=== PATIENT | male | born 1960 | race African-American/Black ===

== ENCOUNTER 2022-09-16 15:33 | Emergency (ER) | payer OTHER, MEDICARE, MEDICAID ==
[~2022-09-16] VITALS: Ht 170.2 cm; Wt 90.0 kg
[~2022-09-16 15:33] MED LIST: CYCL-1 PO; NAPR500T6 PO
[2022-09-16 15:50] VITALS: BP 122/90
[2022-09-16] MEDS ORDERED: CYCL-1 PO (16:37)
[2022-09-16] MEDS ORDERED: IBUP-1986 PO (16:37)
[2022-09-16] MEDS ORDERED: cyclobenzaprine 10mg tablet PO ONE (16:40)
[2022-09-16] MEDS ORDERED: ketorolac trometh. 30mg/ml inj. IM ONE (16:40)
== END 2022-09-16 17:32 | disposition home or self-care (01) ==
LOC: ER 15:34
DX: M25.532 Pain in left wrist (principal); G89.29 Other chronic pain; F15.90 Other stimulant use, unspecified, uncomplicated; Z98.890 Other specified postprocedural states; Z72.89 Other problems related to lifestyle; Z79.899 Other long term (current) drug therapy; V87.7XXA Person injured in collision between other specified motor vehicles (traffic), initial encounter; Y93.89 Activity, other specified; Y92.89 Other specified places as the place of occurrence of the external cause; Y99.8 Other external cause status
CPT/HCPCS: 73110; 96372; 99283; J1885

== ENCOUNTER 2024-04-08 17:03 | Emergency (ER) | payer MEDICARE, MEDICAID ==
[~2024-04-08] VITALS: Ht 170.2 cm; Wt 94.5 kg
[~2024-04-08 17:03] MED LIST changes: +IBUP-1986 PO
[2024-04-08 18:51] LABS: BASOPHILS % (AUTO) 0.6 % (0-1); EOSINOPHILS % (AUTO) 0.1 % (0-6); HEMATOCRIT 42.2 % (42.0-52.0); HEMOGLOBIN 14.1 g/dl (14.0-17.9); LYMPHOCYTES # (AUTO) 0.8 X10'3 (1.1-4.8); LYMPHOCYTES % (AUTO) 10.4 % (21-51); MEAN CORPUSCULAR HEMOGLOBIN 32.2 PG (27.0-31.0); MEAN CORPUSCULAR HGB CONC 33.3 g/dL (33.0-36.5); MEAN CORPUSCULAR VOLUME 96.6 FL (78-98); MEAN PLATELET VOLUME 8.3 FL (7.4-10.4); MONOCYTES # (AUTO) 0.3 X10'3 (0-0.9); MONOCYTES % (AUTO) 3.4 % (2-12); NEUTROPHILS # (AUTO) 6.4 X10'3 (1.8-7.7); NEUTROPHILS % (AUTO) 85.5 % (42-75); PLATELET COUNT 255 X10'3 (140-440); RED BLOOD COUNT 4.37 X10'6 (4.70-6.10); RED CELL DISTRIBUTION WIDTH 13.8 % (11.5-14.5); WHITE BLOOD COUNT 7.5 X10'3 (4.5-11.0)
[2024-04-08 19:11] LABS: ALBUMIN 3.8 G/DL (3.4-5.0); ANION GAP 11 (8-16); BLOOD UREA NITROGEN 17 MG/DL (7-18); BUN/CREATININE RATIO 15.5 (10.0-20.0); CALCIUM 9.6 MG/DL (8.5-10.1); CHLORIDE 105 MMOL/L (99-107); GLUCOSE 151 MG/DL (70-104); POTASSIUM 4.2 MMOL/L (3.5-5.1); PRO BRAIN NATRIURETIC PEPTIDE 5582 PG/ML (0-125); SODIUM 140 MMOL/L (135-145); TOTAL CARBON DIOXIDE 24.2 MMOL/L (24-32); eGFR 81 ML/MIN
[2024-04-08 19:55] LABS: D-DIMER 0.64 MG/L FEU (0-0.50)
[2024-04-08] MEDS ORDERED: iohexol 350MG/ML 100ml bottle IV ONE (20:05)
[2024-04-08 20:45] VITALS: PULSE 110; RESP 20; O2SAT 100
[2024-04-08] MEDS: ipratropium/albuterol 3ml nebule NEB ONE (20:47)
[2024-04-08 20:52] VITALS: PULSE 110; RESP 18; O2SAT 100
[2024-04-08] MEDS: furosemide 10 MG/1 ML 10ml inj IV ONE (22:26)
[2024-04-08] MEDS: morphine 4 MG/ML inj SYRINge IV ONE (22:33)
[2024-04-08 23:10] VITALS: BP 150/99; PULSE 95; RESP 16; TEMP 98.3; O2SAT 95
[2024-04-12] MEDS ORDERED: NO HOME MEDS (07:00)
[2024-04-14] MEDS ORDERED: SPIR25TA PO (12:28)
[2024-04-14] MEDS ORDERED: FURO-150 PO (12:28)
[2024-04-14] MEDS ORDERED: COR3.125T PO (12:28)
[2024-04-14] MEDS ORDERED: EMPA10TA PO (12:28)
[2024-04-14] MEDS ORDERED: SACU1TAB PO (12:28)
== END 2024-04-08 23:14 | disposition home or self-care (01) ==
LOC: ER 17:03
DX: I50.9 Heart failure, unspecified (principal); Z20.822 Contact with and (suspected) exposure to COVID-19; R06.2 Wheezing; G89.29 Other chronic pain; F15.90 Other stimulant use, unspecified, uncomplicated; Z72.89 Other problems related to lifestyle; Z79.899 Other long term (current) drug therapy; Z87.891 Personal history of nicotine dependence
CPT/HCPCS: 36415; 71046; 71275; 80048; 83605; 83880; 85025; 85379; 87040; 87811; 93005; 94640; 96374; 96375; 99285; J1940; J2270; Q9967; Z7610; 94760

== ENCOUNTER 2024-04-15 18:52 | Inpatient (IN) | payer MEDICARE, MEDICAID ==
[~2024-04-15] VITALS: Ht 157.5 cm; Wt 88.8 kg
[~2024-04-15 18:52] MED LIST changes: +COR3.125T PO; -CYCL-1 PO; +EMPA10TA PO; +FURO-150 PO; -IBUP-1986 PO; -NAPR500T6 PO; +SACU1TAB PO; +SPIR25TA PO
[2024-04-15] MEDS: normal saline 1000ml 1,000 ML IV ONE ×2 (19:29→19:36)
[2024-04-15] MEDS ORDERED: calcium gluconate inj. 2 GM in normal saline 100ml IV soln 100 ML IV ONE (19:35)
[2024-04-15] MEDS ORDERED: calcium gluconate inj. 1 GM in normal saline 50ml IV soln 50 ML IV ONE (19:45)
[2024-04-15 20:10] LABS: BASOPHILS # (AUTO) 0.1 X10'3 (0-0.2); BASOPHILS % (AUTO) 1.2 % (0-1); EOSINOPHILS # (AUTO) 0.2 X10'3 (0-0.9); EOSINOPHILS % (AUTO) 2.1 % (0-6); HEMATOCRIT 48.7 % (42.0-52.0); LYMPHOCYTES # (AUTO) 2.8 X10'3 (1.1-4.8); LYMPHOCYTES % (AUTO) 34.2 % (21-51); MEAN CORPUSCULAR HGB CONC 32.9 g/dL (33.0-36.5); MEAN CORPUSCULAR VOLUME 97.3 FL (78-98); MEAN PLATELET VOLUME 8.3 FL (7.4-10.4); MONOCYTES # (AUTO) 0.7 X10'3 (0-0.9); MONOCYTES % (AUTO) 8.1 % (2-12); NEUTROPHILS # (AUTO) 4.4 X10'3 (1.8-7.7); NEUTROPHILS % (AUTO) 54.4 % (42-75); PLATELET COUNT 292 X10'3 (140-440); RED BLOOD COUNT 5.01 X10'6 (4.70-6.10); RED CELL DISTRIBUTION WIDTH 13.8 % (11.5-14.5); WHITE BLOOD COUNT 8.2 X10'3 (4.5-11.0)
[2024-04-15] MEDS: CALCIUM GLUC 1gm/50ml NACL,iso 100 ML IV ONE (20:19)
[2024-04-15 20:35] LABS: ALBUMIN 3.3 G/DL (3.4-5.0); ANION GAP 6 (8-16); BLOOD UREA NITROGEN 30 MG/DL (7-18); BUN/CREATININE RATIO 17.9 (10.0-20.0); CALCIUM 8.9 MG/DL (8.5-10.1); CHLORIDE 102 MMOL/L (99-107); CREATININE 1.68 MG/DL (0.60-1.10); GLUCOSE 168 MG/DL (70-104); PRO BRAIN NATRIURETIC PEPTIDE 1784 PG/ML (0-125); SODIUM 134 MMOL/L (135-145); TOTAL CARBON DIOXIDE 26.4 MMOL/L (24-32); eCRCL 34 ML/MIN; eGFR 50 ML/MIN
[2024-04-15] MEDS ORDERED: magnesium hydroxide 30ml (MOM) UD suspension PO PRN (22:40)
[2024-04-15] MEDS ORDERED: potassium Cl 20 mEq SR tablet PO PRN ×2 (22:40)
[2024-04-15] MEDS ORDERED: ondansetron/PF 4mg/2ml inj IV PRN (22:40)
[2024-04-15] MEDS ORDERED: acetaminophen 325mg tablet PO PRN (22:40)
[2024-04-15] MEDS ORDERED: mag hydrox/Alum hydrox/simeth 30ml oral suspension PO PRN (22:40)
[2024-04-15] MEDS ORDERED: magnesium sulf-water 2g/50mL 50 ML IV PRN (22:40)
[2024-04-15] MEDS ORDERED: potassium Cl 40MEQ/1/2NS 520ml 520 ML IV PRN (22:40)
[2024-04-15] MEDS ORDERED: magnesium sulf-water 4G/100mL 100 ML IV PRN (22:40)
[2024-04-15] MEDS ORDERED: magnesium Cl slow-release 64mg tablet PO PRN (22:40)
[2024-04-15 23:25] LABS: URINE AMPHETAMINE SCREEN NEGATIVE (Neg); URINE BARBITUATE SCREEN NEGATIVE (Neg); URINE BENZODIAZEPINES SCREEN NEGATIVE (Neg); URINE CANNABINOID SCREEN POSITIVE (Neg); URINE COCAINE SCREEN NEGATIVE (Neg); URINE METHADONE SCREEN NEGATIVE (Neg); URINE OPIATE SCREEN NEGATIVE (Neg); URINE PHENCYCLIDINE SCREEN NEGATIVE (Neg)
[2024-04-15] MEDS: normal saline 1000ml 1,000 ML IV SCH (23:35)
[2024-04-16 01:53] LABS: POTASSIUM 5.1 MMOL/L (3.5-5.1)
[2024-04-16 07:52] LABS: BASOPHILS # (AUTO) 0.1 X10'3 (0-0.2); EOSINOPHILS # (AUTO) 0.1 X10'3 (0-0.9); EOSINOPHILS % (AUTO) 1.9 % (0-6); HEMATOCRIT 45.2 % (42.0-52.0); HEMOGLOBIN 15.4 g/dl (14.0-17.9); LYMPHOCYTES # (AUTO) 2.6 X10'3 (1.1-4.8); LYMPHOCYTES % (AUTO) 39.8 % (21-51); MEAN CORPUSCULAR HEMOGLOBIN 32.9 PG (27.0-31.0); MEAN CORPUSCULAR VOLUME 96.8 FL (78-98); MEAN PLATELET VOLUME 8.4 FL (7.4-10.4); MONOCYTES # (AUTO) 0.7 X10'3 (0-0.9); MONOCYTES % (AUTO) 10.2 % (2-12); NEUTROPHILS # (AUTO) 3.1 X10'3 (1.8-7.7); NEUTROPHILS % (AUTO) 47.1 % (42-75); PLATELET COUNT 254 X10'3 (140-440); RED BLOOD COUNT 4.67 X10'6 (4.70-6.10); RED CELL DISTRIBUTION WIDTH 13.8 % (11.5-14.5); WHITE BLOOD COUNT 6.5 X10'3 (4.5-11.0)
[2024-04-16] MEDS: K and/or MAG REPLACEMENT MC SCH (08:00)
[2024-04-16 08:18] LABS: ALBUMIN 3.1 G/DL (3.4-5.0); ANION GAP 10 (8-16); BLOOD UREA NITROGEN 22 MG/DL (7-18); CALCIUM 8.8 MG/DL (8.5-10.1); CHLORIDE 105 MMOL/L (99-107); GLUCOSE 99 MG/DL (70-104); MAGNESIUM 2.1 MG/DL (1.5-2.4); POTASSIUM 4.4 MMOL/L (3.5-5.1); SODIUM 138 MMOL/L (135-145); TOTAL CARBON DIOXIDE 22.9 MMOL/L (24-32); eCRCL 52 ML/MIN; eGFR 81 ML/MIN
[2024-04-16] MEDS: heparin, porcine 5000 units/ml vial SQ SCH (13:11)
[2024-04-16] MEDS: EMPAGLIFLOZIN 10 MG TABLET PO SCH (13:15)
[2024-04-16] MEDS: furosemide 20 MG/2 ML vial IV SCH (16:05)
[2024-04-16 18:00] VITALS: BP 112/76; PULSE 87; RESP 18; TEMP 98.2; O2SAT 94
[2024-04-16] MEDS: acetaminophen 325mg tablet PO PRN (19:26)
[2024-04-16 20:00] VITALS: BP_SYST 100; BP_SYST 138; BP_SYST 93; BP_DIAS 58; BP_DIAS 71; BP_DIAS 85; RESP 18; O2SAT 94
[2024-04-17 02:00] VITALS: BP 118/66; PULSE 79; RESP 15; TEMP 97.9; O2SAT 95
[2024-04-17] MEDS ORDERED: lisinopril 2.5mg tablet PO SCH (08:00)
[2024-04-17 08:39] LABS: EOSINOPHILS # (AUTO) 0.1 X10'3 (0-0.9); EOSINOPHILS % (AUTO) 3.1 % (0-6); HEMATOCRIT 46.5 % (42.0-52.0); HEMOGLOBIN 15.6 g/dl (14.0-17.9); LYMPHOCYTES # (AUTO) 1.7 X10'3 (1.1-4.8); LYMPHOCYTES % (AUTO) 37.1 % (21-51); MEAN CORPUSCULAR HEMOGLOBIN 32.4 PG (27.0-31.0); MEAN CORPUSCULAR HGB CONC 33.5 g/dL (33.0-36.5); MEAN CORPUSCULAR VOLUME 96.7 FL (78-98); MEAN PLATELET VOLUME 8.7 FL (7.4-10.4); MONOCYTES # (AUTO) 0.5 X10'3 (0-0.9); MONOCYTES % (AUTO) 11.7 % (2-12); NEUTROPHILS # (AUTO) 2.2 X10'3 (1.8-7.7); NEUTROPHILS % (AUTO) 47.1 % (42-75); PLATELET COUNT 226 X10'3 (140-440); RED BLOOD COUNT 4.81 X10'6 (4.70-6.10); RED CELL DISTRIBUTION WIDTH 13.6 % (11.5-14.5); WHITE BLOOD COUNT 4.7 X10'3 (4.5-11.0)
[2024-04-17 08:49] LABS: ALBUMIN 3.1 G/DL (3.4-5.0); ANION GAP 9 (8-16); BLOOD UREA NITROGEN 20 MG/DL (7-18); BUN/CREATININE RATIO 21.3 (10.0-20.0); CALCIUM 9.1 MG/DL (8.5-10.1); CHLORIDE 102 MMOL/L (99-107); CREATININE 0.94 MG/DL (0.60-1.10); GLUCOSE 109 MG/DL (70-104); POTASSIUM 4.3 MMOL/L (3.5-5.1); SODIUM 136 MMOL/L (135-145); TOTAL CARBON DIOXIDE 25.3 MMOL/L (24-32); eCRCL 61 ML/MIN; eGFR > 90 ML/MIN
[2024-04-17] MEDS ORDERED: LISI2.5T14 PO (11:56)
[2024-04-17] MEDS ORDERED: FURO-150 PO (11:56)
== END 2024-04-17 13:50 | disposition home health service (06) | DRG 312 ==
LOC: ER 18:52 → ED HOLD 22:42 → UNDOADMIN 22:42 → ED HOLD 23:01 → PCU 3S 04-16 10:16
PROVIDERS: ADMIT Surgery; ATTEND Internal Medicine
DX: I95.2 Hypotension due to drugs (principal); N17.9 Acute kidney failure, unspecified; I42.0 Dilated cardiomyopathy; I50.32 Chronic diastolic (congestive) heart failure; E87.5 Hyperkalemia; I11.0 Hypertensive heart disease with heart failure; G89.29 Other chronic pain; M54.9 Dorsalgia, unspecified; F15.90 Other stimulant use, unspecified, uncomplicated; T43.655A Adverse effect of methamphetamines, initial encounter; Y92.89 Other specified places as the place of occurrence of the external cause
CPT/HCPCS: 36415; 71045; 80048; 80305; 82948; 83605; 83735; 83880; 84132; 84145; 84484; 85025; 87040; 93005; 96365; 99285; A4620; A6258; G0378; J0610; J1644; J1940; J7030

== ENCOUNTER 2024-07-22 20:30 | Inpatient (IN) | payer MEDICARE, MEDICAID ==
[~2024-07-22] VITALS: Ht 162.6 cm; Wt 90.9 kg
[~2024-07-22 20:30] MED LIST changes: +CARV3.1232 PO; -COR3.125T PO; +LISI2.5T14 PO; -SACU1TAB PO
[2024-07-22 21:06] LABS: BASOPHILS % (AUTO) 0.6 % (0-1); EOSINOPHILS # (AUTO) 0.2 X10'3 (0-0.9); EOSINOPHILS % (AUTO) 2.5 % (0-6); HEMATOCRIT 41.8 % (42.0-52.0); HEMOGLOBIN 14.1 g/dl (14.0-17.9); LYMPHOCYTES # (AUTO) 2.7 X10'3 (1.1-4.8); LYMPHOCYTES % (AUTO) 43.4 % (21-51); MEAN CORPUSCULAR HGB CONC 33.7 g/dL (33.0-36.5); MEAN PLATELET VOLUME 7.9 FL (7.4-10.4); MONOCYTES # (AUTO) 0.6 X10'3 (0-0.9); MONOCYTES % (AUTO) 9.5 % (2-12); NEUTROPHILS # (AUTO) 2.8 X10'3 (1.8-7.7); PLATELET COUNT 229 X10'3 (140-440); RED BLOOD COUNT 4.27 X10'6 (4.70-6.10); RED CELL DISTRIBUTION WIDTH 13.8 % (11.5-14.5); WHITE BLOOD COUNT 6.3 X10'3 (4.5-11.0)
[2024-07-22 21:29] LABS: ALANINE AMINOTRANSFERASE 47 U/L (12-78); ALBUMIN 3.5 G/DL (3.4-5.0); ALBUMIN/GLOBULIN RATIO 0.8 (1.1-1.5); ALKALINE PHOSPHATASE 57 IU/L (46-116); ANION GAP 11 (8-16); ASPARTATE AMINO TRANSFERASE 42 U/L (10-37); BILIRUBIN,TOTAL 0.6 MG/DL (0.1-1.0); BLOOD UREA NITROGEN 17 MG/DL (7-18); BUN/CREATININE RATIO 15.7 (10.0-20.0); CALCIUM 9.1 MG/DL (8.5-10.1); CHLORIDE 105 MMOL/L (99-107); CREATININE 1.08 MG/DL (0.60-1.10); GLUCOSE 110 MG/DL (70-104); POTASSIUM 3.8 MMOL/L (3.5-5.1); SODIUM 139 MMOL/L (135-145); TOTAL CARBON DIOXIDE 23.2 MMOL/L (24-32); eCRCL 56 ML/MIN; eGFR 83 ML/MIN
[2024-07-22 21:31] LABS: PRO BRAIN NATRIURETIC PEPTIDE 8473 PG/ML (0-125)
[2024-07-22] MEDS: ipratropium/albuterol 3ml nebule NEB ONE (21:31)
[2024-07-22 21:34] VITALS: PULSE 90; RESP 18; O2SAT 98
[2024-07-22 21:41] VITALS: PULSE 90; RESP 18; O2SAT 98
[2024-07-23] VITALS (8 sets, daily range): BP systolic 100–121; BP diastolic 65–76; PULSE 80–124; RESP 16–23; TEMP 97.2–98.1; O2SAT 91–100
[2024-07-23] MEDS ORDERED: EMPA10TA PO (01:20)
[2024-07-23] MEDS ORDERED: FURO20TA4 PO (01:20)
[2024-07-23] MEDS ORDERED: CARV3.122 PO (01:20)
[2024-07-23] MEDS ORDERED: LISI5TAB22 PO (01:20)
[2024-07-23] MEDS ORDERED: SPIR25TA5 PO (01:20)
[2024-07-23] MEDS: furosemide 10 MG/1 ML 10ml inj IV ONE (01:33)
[2024-07-23] MEDS ORDERED: magnesium Cl slow-release 64mg tablet PO PRN (01:45)
[2024-07-23] MEDS ORDERED: potassium Cl 40MEQ/1/2NS 520ml 520 ML IV PRN (01:45)
[2024-07-23] MEDS ORDERED: magnesium sulf-water 2g/50mL 50 ML IV PRN (01:45)
[2024-07-23] MEDS ORDERED: acetaminophen 325mg tablet PO PRN ×2 (01:45→22:20)
[2024-07-23] MEDS ORDERED: magnesium sulf-water 4G/100mL 100 ML IV PRN (01:45)
[2024-07-23] MEDS ORDERED: ondansetron/PF 4mg/2ml inj IV PRN (01:45)
[2024-07-23] MEDS ORDERED: potassium Cl 20 mEq SR tablet PO PRN ×2 (01:45)
[2024-07-23] MEDS ORDERED: magnesium hydroxide 30ml (MOM) UD suspension PO PRN (01:45)
[2024-07-23] MEDS ORDERED: mag hydrox/Alum hydrox/simeth 30ml oral suspension PO PRN (01:45)
[2024-07-23] MEDS: PERFLUTREN PROTEIN-A MICROSPHR (Optison) 0.22 MG/ML 3ML VIAL IV ONE (02:44)
[2024-07-23 03:11] LABS: MAGNESIUM 1.9 MG/DL (1.5-2.4)
[2024-07-23 03:14] LABS: POTASSIUM 3.6 MMOL/L (3.5-5.1)
[2024-07-23] MEDS: K and/or MAG REPLACEMENT MC SCH (08:00)
[2024-07-23] MEDS: furosemide 10 MG/1 ML 10ml inj IV SCH (08:18)
[2024-07-23] MEDS: EMPAGLIFLOZIN 10 MG TABLET PO SCH (08:19)
[2024-07-23] MEDS: docusate sod 100mg capsule PO SCH (08:19)
[2024-07-23] MEDS: lisinopril 5mg tablet PO SCH (08:19)
[2024-07-23] MEDS: carVEDilol 3.125mg tablet PO SCH (08:19)
[2024-07-23] MEDS: spironolactone 25 MG tablet PO SCH (08:33)
[2024-07-23] MEDS: azithromycin/NS 500mg/250ml 250 ML IV SCH (13:13)
[2024-07-23] MEDS: guaiFENesin ER 600mg tablet PO SCH (13:25)
[2024-07-23] MEDS ORDERED: furosemide 40mg/4ml inj IV SCH (13:26)
[2024-07-23] MEDS: ipratropium/albuterol 3ml nebule ONE (14:51)
[2024-07-23] MEDS ORDERED: morphine 2 MG/ML inj. syringe IV PRN (15:00)
[2024-07-23] MEDS: ipratropium/albuterol 3ml nebule NEB PRN (15:10)
[2024-07-23] MEDS: furosemide 40mg/4ml inj IV ONE (15:12)
[2024-07-23] MEDS: LORazepam 2 mg/ml vial IV PRN (15:45)
[2024-07-23 17:20] LABS: ABG BASE EXCESS 3.3 mmol/L (-2.0-3.0); ABG HCO3 28.1 mmol/L (21.0-28.0); ABG OXYGEN SATURATION 95.7 % (94.0-98.0); ABG PCO2 (T) 42.7 mmHg (35.0-48.0); ABG PH (T) 7.435 (7.350-7.450); ABG PO2 (T) 78.5 mmHg (83.0-108.0); ALLEN'S TEST POSITIVE; FCOHb 0.9 % (0.5-1.5); FHHb 4.2 % (0.0-5.0); FMetHb 0.3 % (0.0-1.5); FO2Hb 94.6 % (94.0-98.0); MODE NASAL CANNULA; PATIENT TEMPERATURE 36.8; TOTAL HEMOGLOBIN 15.3 G/dl (13.5-17.5)
[2024-07-23] MEDS: furosemide 40mg tablet PO SCH (22:28)
[2024-07-23] MEDS: HYDROcodone/acetaminophen 5mg/325mg tablet PO PRN (22:29)
[2024-07-23] MEDS: enoxaparin 40mg/0.4ml syringe SQ SCH (22:31)
[2024-07-24] VITALS (9 sets, daily range): BP systolic 90–108; BP diastolic 56–72; PULSE 52–107; RESP 13–20; TEMP 97–97.9; O2SAT 94–100
[2024-07-24 01:35] LABS: URINE AMPHETAMINE SCREEN POSITIVE (Neg); URINE BARBITUATE SCREEN NEGATIVE (Neg); URINE BENZODIAZEPINES SCREEN NEGATIVE (Neg); URINE CANNABINOID SCREEN POSITIVE (Neg); URINE COCAINE SCREEN NEGATIVE (Neg); URINE METHADONE SCREEN NEGATIVE (Neg); URINE OPIATE SCREEN NEGATIVE (Neg); URINE PHENCYCLIDINE SCREEN NEGATIVE (Neg)
[2024-07-24] MEDS ORDERED: furosemide 40mg tablet PO SCH (08:00)
[2024-07-24 08:17] LABS: BASOPHILS % (AUTO) 0.7 % (0-1); EOSINOPHILS # (AUTO) 0.1 X10'3 (0-0.9); EOSINOPHILS % (AUTO) 2.2 % (0-6); HEMATOCRIT 46.5 % (42.0-52.0); HEMOGLOBIN 15.6 g/dl (14.0-17.9); LYMPHOCYTES # (AUTO) 1.9 X10'3 (1.1-4.8); LYMPHOCYTES % (AUTO) 28.9 % (21-51); MEAN CORPUSCULAR HGB CONC 33.6 g/dL (33.0-36.5); MEAN PLATELET VOLUME 8.7 FL (7.4-10.4); MONOCYTES # (AUTO) 0.6 X10'3 (0-0.9); MONOCYTES % (AUTO) 10.1 % (2-12); NEUTROPHILS # (AUTO) 3.7 X10'3 (1.8-7.7); NEUTROPHILS % (AUTO) 58.1 % (42-75); PLATELET COUNT 279 X10'3 (140-440); RED BLOOD COUNT 4.75 X10'6 (4.70-6.10); RED CELL DISTRIBUTION WIDTH 13.6 % (11.5-14.5); WHITE BLOOD COUNT 6.4 X10'3 (4.5-11.0)
[2024-07-24 08:36] LABS: INR 1.1 INR
[2024-07-24 08:54] LABS: ALANINE AMINOTRANSFERASE 41 U/L (12-78); ALBUMIN 3.6 G/DL (3.4-5.0); ALBUMIN/GLOBULIN RATIO 0.7 (1.1-1.5); ALKALINE PHOSPHATASE 67 IU/L (46-116); ANION GAP 11 (8-16); ASPARTATE AMINO TRANSFERASE 44 U/L (10-37); BILIRUBIN,TOTAL 0.9 MG/DL (0.1-1.0); BLOOD UREA NITROGEN 24 MG/DL (7-18); BUN/CREATININE RATIO 17.9 (10.0-20.0); CALCIUM 9.3 MG/DL (8.5-10.1); CHLORIDE 99 MMOL/L (99-107); CREATININE 1.34 MG/DL (0.60-1.10); GLUCOSE 128 MG/DL (70-104); POTASSIUM 3.6 MMOL/L (3.5-5.1); SODIUM 137 MMOL/L (135-145); TOTAL CARBON DIOXIDE 26.8 MMOL/L (24-32); TOTAL PROTEIN 8.6 G/DL (6.4-8.2); eCRCL 45 ML/MIN; eGFR 65 ML/MIN
[2024-07-24] MEDS: furosemide 40mg/4ml inj IV SCH (09:04)
[2024-07-24 10:19] LABS: BILIRUBIN,URINE NEGATIVE (Neg); CLARITY,URINE CLEAR (Clear); COLOR,URINE YELLOW (Yellow); GLUCOSE, URINE >=1000 mg/dl (Neg); KETONES,URINE NEGATIVE (Neg); LEUKOCYTE ESTERASE ,URINE NEGATIVE (Neg); NITRITES, URINE NEGATIVE (Neg); OCCULT BLOOD,URINE NEGATIVE (Neg); PROTEIN,URINE NEGATIVE (Neg); UROBILINOGEN,URINE 0.2 E.U/dL (0.2-1.0)
[2024-07-24 10:21] LABS: UA COLLECTION TYPE CLN CATCH MIDSTREAM
[2024-07-24 10:25] LABS: RBC,URINE 0-2 /HPF (0-2); SQUAMOUS EPITHELIAL CELL,UR MANY /LPF (FEW); WBC,URINE 0-4 /HPF (0-4)
[2024-07-24 10:26] LABS: BACTERIA,URINE FEW /HPF (Neg)
[2024-07-24] MEDS: azithromycin 250mg tablet PO SCH (15:02)
[2024-07-24 16:09] LABS: HEMOGLOBIN A1C 6.1 % (4.5-6.2)
[2024-07-25 02:00] VITALS: BP 100/65; PULSE 92; RESP 19; TEMP 97.4; O2SAT 96
[2024-07-25 06:00] VITALS: BP 98/47; PULSE 84; RESP 20; TEMP 97.4; O2SAT 97
[2024-07-25 07:46] LABS: BASOPHILS # (AUTO) 0.1 X10'3 (0-0.2); BASOPHILS % (AUTO) 1.1 % (0-1); EOSINOPHILS # (AUTO) 0.2 X10'3 (0-0.9); EOSINOPHILS % (AUTO) 2.3 % (0-6); HEMOGLOBIN 16.3 g/dl (14.0-17.9); LYMPHOCYTES % (AUTO) 28.8 % (21-51); MEAN CORPUSCULAR HEMOGLOBIN 33.1 PG (27.0-31.0); MEAN CORPUSCULAR VOLUME 97.4 FL (78-98); MEAN PLATELET VOLUME 8.8 FL (7.4-10.4); MONOCYTES # (AUTO) 0.7 X10'3 (0-0.9); MONOCYTES % (AUTO) 10.3 % (2-12); NEUTROPHILS % (AUTO) 57.5 % (42-75); PLATELET COUNT 266 X10'3 (140-440); RED BLOOD COUNT 4.93 X10'6 (4.70-6.10); RED CELL DISTRIBUTION WIDTH 13.2 % (11.5-14.5); WHITE BLOOD COUNT 6.9 X10'3 (4.5-11.0)
[2024-07-25 07:54] LABS: ALBUMIN 3.6 G/DL (3.4-5.0); ANION GAP 9 (8-16); BLOOD UREA NITROGEN 28 MG/DL (7-18); BUN/CREATININE RATIO 22.6 (10.0-20.0); CALCIUM 9.5 MG/DL (8.5-10.1); CHLORIDE 99 MMOL/L (99-107); CREATININE 1.24 MG/DL (0.60-1.10); GLUCOSE 103 MG/DL (70-104); SODIUM 136 MMOL/L (135-145); TOTAL CARBON DIOXIDE 27.7 MMOL/L (24-32); eCRCL 49 ML/MIN; eGFR 71 ML/MIN
[2024-07-25 08:21] LABS: ALANINE AMINOTRANSFERASE 42 U/L (12-78); ALBUMIN 3.6 G/DL (3.4-5.0); ALBUMIN/GLOBULIN RATIO 0.7 (1.1-1.5); ALKALINE PHOSPHATASE 66 IU/L (46-116); ANION GAP 10 (8-16); ASPARTATE AMINO TRANSFERASE 49 U/L (10-37); BILIRUBIN,TOTAL 0.9 MG/DL (0.1-1.0); BLOOD UREA NITROGEN 28 MG/DL (7-18); BUN/CREATININE RATIO 22.6 (10.0-20.0); CALCIUM 9.4 MG/DL (8.5-10.1); CHLORIDE 98 MMOL/L (99-107); CREATININE 1.24 MG/DL (0.60-1.10); GLUCOSE 103 MG/DL (70-104); MAGNESIUM 2.1 MG/DL (1.5-2.4); SODIUM 135 MMOL/L (135-145); TOTAL CARBON DIOXIDE 26.6 MMOL/L (24-32); TOTAL PROTEIN 8.7 G/DL (6.4-8.2); eCRCL 49 ML/MIN; eGFR 71 ML/MIN
[2024-07-25 08:45] VITALS: RESP 20; O2SAT 97
[2024-07-25 08:53] VITALS: PULSE 90; RESP 16; O2SAT 98
[2024-07-25] MEDS ORDERED: AZIT500T PO (09:43)
[2024-07-25] MEDS ORDERED: LISI5TAB22 PO (09:43)
[2024-07-25] MEDS ORDERED: EMPA10TA PO (09:43)
[2024-07-25] MEDS ORDERED: CARV3.12 PO (09:43)
[2024-07-25] MEDS ORDERED: IPRA3AMP9 NEB (09:43)
[2024-07-25] MEDS ORDERED: SPIR25TA PO (09:43)
[2024-07-25] MEDS ORDERED: GUAI600T45 PO (09:43)
[2024-07-25] MEDS ORDERED: FURO20TA4 PO (09:50)
[2024-07-27] MEDS ORDERED: FAMO-128 PO (17:19)
[2024-07-27] MEDS ORDERED: PRED50TA PO (17:19)
[2024-07-27] MEDS ORDERED: HYDR-3686 PO (17:19)
[2024-07-27] MEDS ORDERED: LOSA-416 PO (17:19)
== END 2024-07-25 11:49 | disposition home or self-care (01) | DRG 291 ==
LOC: ER 20:31 → ED HOLD 07-23 01:47 → PCU 3S 07-23 09:25
PROVIDERS: ADMIT Internal Medicine Critical Care Medicine; ATTEND Internal Medicine
DX: I11.0 Hypertensive heart disease with heart failure (principal); I50.31 Acute diastolic (congestive) heart failure; J96.01 Acute respiratory failure with hypoxia; N17.0 Acute kidney failure with tubular necrosis; I47.20 Ventricular tachycardia, unspecified; Z66 Do not resuscitate; G89.29 Other chronic pain; M54.9 Dorsalgia, unspecified; E11.9 Type 2 diabetes mellitus without complications; Z79.899 Other long term (current) drug therapy
CPT/HCPCS: 36415; 36600; 71045; 80048; 80053; 80305; 81001; 82803; 83036; 83735; 83880; 84132; 84484; 85018; 85025; 85610; 87081; 93005; 93306; 94640; 94760; 96374; 97116; 97161; 99291; A4615; A6258; G0378; J0456; J1650; J1940; J2060; J7040

== ENCOUNTER 2024-08-10 17:01 | Emergency (ER) | payer MEDICARE, MEDICAID ==
[~2024-08-10] VITALS: Ht 170.2 cm; Wt 90.9 kg
[~2024-08-10 17:01] MED LIST changes: +CARV3.12 PO; -CARV3.1232 PO; +FAMO-128 PO; -FURO-150 PO; +FURO20TA4 PO; +GUAI600T45 PO; +HYDR-3686 PO; +IPRA3AMP9 NEB; -LISI2.5T14 PO; +LISI5TAB22 PO; +LOSA-416 PO; +PRED50TA PO
[2024-08-10 18:03] LABS: BASOPHILS # (AUTO) 0.1 X10'3 (0-0.2); BASOPHILS % (AUTO) 0.7 % (0-1); EOSINOPHILS # (AUTO) 0.2 X10'3 (0-0.9); EOSINOPHILS % (AUTO) 2.7 % (0-6); HEMATOCRIT 43.3 % (42.0-52.0); HEMOGLOBIN 14.6 g/dl (14.0-17.9); LYMPHOCYTES # (AUTO) 2.5 X10'3 (1.1-4.8); LYMPHOCYTES % (AUTO) 28.2 % (21-51); MEAN CORPUSCULAR HEMOGLOBIN 33.3 PG (27.0-31.0); MEAN CORPUSCULAR HGB CONC 33.7 g/dL (33.0-36.5); MEAN CORPUSCULAR VOLUME 98.9 FL (78-98); MEAN PLATELET VOLUME 7.8 FL (7.4-10.4); MONOCYTES # (AUTO) 0.7 X10'3 (0-0.9); MONOCYTES % (AUTO) 8.4 % (2-12); NEUTROPHILS # (AUTO) 5.3 X10'3 (1.8-7.7); PLATELET COUNT 222 X10'3 (140-440); RED BLOOD COUNT 4.38 X10'6 (4.70-6.10); RED CELL DISTRIBUTION WIDTH 13.7 % (11.5-14.5); WHITE BLOOD COUNT 8.8 X10'3 (4.5-11.0)
[2024-08-10 18:21] LABS: ALANINE AMINOTRANSFERASE 53 U/L (12-78); ALBUMIN 3.3 G/DL (3.4-5.0); ALBUMIN/GLOBULIN RATIO 0.7 (1.1-1.5); ALKALINE PHOSPHATASE 67 IU/L (46-116); ANION GAP 11 (8-16); ASPARTATE AMINO TRANSFERASE 39 U/L (10-37); BILIRUBIN,TOTAL 0.4 MG/DL (0.1-1.0); BLOOD UREA NITROGEN 25 MG/DL (7-18); BUN/CREATININE RATIO 25.5 (10.0-20.0); CALCIUM 9.6 MG/DL (8.5-10.1); CHLORIDE 104 MMOL/L (99-107); CREATININE 0.98 MG/DL (0.60-1.10); GLUCOSE 130 MG/DL (70-104); POTASSIUM 4.1 MMOL/L (3.5-5.1); SODIUM 140 MMOL/L (135-145); TOTAL CARBON DIOXIDE 25.3 MMOL/L (24-32); eCRCL 69 ML/MIN; eGFR > 90 ML/MIN
[2024-08-10 18:29] LABS: PRO BRAIN NATRIURETIC PEPTIDE 5341 PG/ML (0-125)
[2024-08-10 20:52] VITALS: BP 152/88; PULSE 86; RESP 18; TEMP 98.5; O2SAT 97
== END 2024-08-10 20:53 | disposition home or self-care (01) ==
LOC: ER 17:01
DX: R06.09 Other forms of dyspnea (principal); I50.9 Heart failure, unspecified; R06.01 Orthopnea; F12.90 Cannabis use, unspecified, uncomplicated; Z88.8 Allergy status to other drugs, medicaments and biological substances; Z98.890 Other specified postprocedural states
CPT/HCPCS: 36415; 71045; 80053; 83880; 84484; 85025; 93005; 99285

== ENCOUNTER 2024-11-09 19:02 | Emergency (ER) | payer MEDICARE, MEDICAID ==
[~2024-11-09] VITALS: Ht 160 cm; Wt 89.1 kg
[~2024-11-09 19:02] MED LIST changes: -HYDR-3686 PO; -LOSA-416 PO
[2024-11-09 19:17] VITALS: BP 112/72; PULSE 97; RESP 18; TEMP 98.3; O2SAT 99
== END 2024-11-09 21:00 | disposition left against medical advice (07) ==
LOC: ER 19:03
DX: R06.02 Shortness of breath (principal); Z53.21 Procedure and treatment not carried out due to patient leaving prior to being seen by health care provider; Z88.8 Allergy status to other drugs, medicaments and biological substances
CPT/HCPCS: 71045